=== PATIENT | female | born 1960 | race Caucasian/White ===

== ENCOUNTER 2019-05-16 02:39 | Emergency (ER) | payer MEDICAID ==
[2019-05-16] MEDS ORDERED: Sodium Chloride 0.9% 10 ML Syringe FLUSH PRN (03:00)
[2019-05-16] MEDS ORDERED: HYDROmorphone 2 MG/ML SDV IVPUSH PRN (03:02)
[2019-05-16] MEDS ORDERED: Sodium Chloride 0.9% 1,000 ML IV ONE (03:02)
[2019-05-16] MEDS ORDERED: Ondansetron 4 MG/2 ML SDV IVPUSH ONE (03:02)
--- NOTE | 2019-05-16 03:04 | EDM.PDOC ---
ED HPI GENERAL MEDICAL PROBLEM - General Chief Complaint: Abdominal Pain Stated Complaint: left lower abdominal pain Time Seen by Provider: 05/16/19 02:45 Source of Information: Reports: Patient History Limitations: Reports: No Limitations - History of Present Illness INITIAL COMMENTS - FREE TEXT/NARRATIVE: 58-year-old female who reports an approximate 4 PM last night she developed pain in her left lower quadrant. It was sharp and steady pain that has progressively worsened with time. It now seems to radiate to her right lower back. She has had nausea with vomiting 2. She's had no dysuria or hematuria. She is rating her pain as a 10/10. It does seem to radiate along her left flank and into her left lower back. She has had no fevers or chills. She reports she felt completely normal prior to this occurring for p.m. today. Movement and palpation seems to make it worse. It is better at rest. She was eating and drinking normally prior to this. She has never had pain like this before. Lying down seems to make it worse. Palpation makes it worse. Walking makes it worse There are no other associated signs or symptoms. There are no other modifying factors. 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 (see below) (Nothing) - Related Data Allergies Allergy/AdvReac Type Severity Reaction Status Date / Time No Known Allergies Allergy Verified 05/16/19 02:59 Home Meds: Home Meds Hydrocodone/Acetaminophen [Cameron 5-325 Tablet] 1 - 2 tab PO Q6H PRN #12 tablet 05/16/19 [Rx] Ondansetron [Zofran ODT] 4 mg PO Q6H PRN #8 tab.dis 05/16/19 [Rx] Sulfamethoxazole/Trimethoprim [Bactrim Ds Tablet] 1 each PO BID 7 Days #14 tablet 05/16/19 [Rx] Tamsulosin [Tamsulosin 24 Hr] 0.4 mg PO BEDTIME #7 cap.er 05/16/19 [Rx] Past Medical History - Past Health History Medical/Surgical History: Denies Medical/Surgical History (No chronic medical problems. Surgical history as detailed below.) - Past Surgical History HEENT Surgical History: Reports: Naso-Sinus Surgery Neurological Surgical History: Reports: Lumbar Spine (Surgery years ago.) Social & Family History - Tobacco Use Smoking Status *Q: Current Every Day Smoker - Alcohol Use Alcohol Use History: No Alcohol Use Frequency: Weekly - Living Situation & Occupation Occupation: Employed (Works at the [employer] ED ROS GENERAL - Review of Systems Review Of Systems: See Below Constitutional: Reports: No Symptoms HEENT: Reports: Other (Dry mouth) Respiratory: Reports: No Symptoms Cardiovascular: Reports: No Symptoms Endocrine: Reports: No Symptoms GI/Abdominal: Reports: Abdominal Pain, Nausea, Vomiting (2). Denies: Diarrhea : Reports: Flank Pain. Denies: Dysuria, Hematuria Musculoskeletal: Reports: Back Pain (On her right lower back) Skin: Reports: No Symptoms (No rashes) Neurological: Reports: No Symptoms ED EXAM, GI/ABD - Physical Exam Exam: See Below Exam Limited By: No Limitations General Appearance: Alert, WD/WN, Moderate Distress Eyes: Bilateral: Normal Appearance, EOMI Ears: Normal External Exam, Normal Canal, Hearing Grossly Normal Nose: Normal Inspection, Normal Mucosa, Nasal Swelling Throat/Mouth: Normal Voice, No Airway Compromise, Other (Pharyngeal erythema posteriorly. No stridor. Somewhat hoarse voice.) Head: Atraumatic, Normocephalic Neck: Normal Inspection, Supple, Non-Tender, Full Range of Motion Respiratory/Chest: No Respiratory Distress, Lungs Clear, Normal Breath Sounds, No Accessory Muscle Use, Chest Non-Tender Cardiovascular: Normal Peripheral Pulses, Regular Rate, Rhythm, Tachycardia GI/Abdominal Exam: Normal Bowel Sounds, Soft, Tender (Left lower quadrant. No hernias. No masses.) Back Exam: Normal Inspection, Full Range of Motion. No: Decreased Range of Motion Extremities: Normal Inspection, Normal Range of Motion, Non-Tender, No Pedal Edema, Normal Capillary Refill Neurological: Alert, Oriented, CN II-XII Intact, Normal Cognition, No Motor/ Sensory Deficits Skin Exam: Warm, Dry, Intact, Normal Color, No Rash Course - Vital Signs Last Recorded V/S: Last Vital Signs Temp 36.6 C 05/16/19 03:00 Pulse 74 05/16/19 03:00 Resp 17 05/16/19 03:00 BP 152/83 H 05/16/19 03:00 Pulse Ox 99 05/16/19 03:00 - Orders/Labs/Meds Orders: Active Orders 24 hr Category Date Time Status Abdomen Pelvis wo Cont [CT] Stat Exams 05/16/19 03:00 Taken CULTURE URINE [RM] Stat Lab 05/16/19 04:56 HYDROmorphone [Dilaudid] Med 05/16/19 03:02 Active 0.5 mg IVPUSH Q5M PRN Sodium Chloride 0.9% [Saline Flush] Med 05/16/19 03:00 Active 10 ml FLUSH ASDIRECTED PRN Sulfamethoxazole/Trimethoprim [Septra DS] Med 05/16/19 04:57 Once 1 tab PO ONETIME ONE Peripheral IV Insertion Adult [OM.PC] Routine Oth 05/16/19 03:00 Ordered Medication Orders Hydromorphone HCl (Dilaudid) 0.5 mg IVPUSH Q5M PRN PRN Reason: Abdominal Pain Last Admin: 05/16/19 03:23 Dose: 0.5 mg Sodium Chloride (Saline Flush) 10 ml FLUSH ASDIRECTED PRN PRN Reason: Keep Vein Open Labs: Laboratory Tests 05/16/19 05/16/19 05/16/19 Range/Units 03:20 03:20 03:20 WBC 9.1 (4.5-12.0) X10-3/uL RBC 4.51 (3.23-5.20) x10(6)uL Hgb 15.2 (11.5-15.5) g/dL Hct 43.5 (30.0-51.3) % MCV 96.5 H (80-96) fL MCH 33.7 H (27.7-33.6) pg MCHC 35.0 (32.2-35.4) g/dL RDW 13.6 (11.5-15.5) % Plt Count 194 (125-369) X10(3)uL MPV 9.6 (7.4-10.4) fL Neut % (Auto) 81.3 (46-82) % Lymph % (Auto) 13.7 (13-37) % [place] % (Auto) 2.9 L (4-12) % Eos % (Auto) 1 (1.0-5.0) % Baso % (Auto) 1 (0-2) % Neut # (Auto) 7.4 (1.6-8.3) # Lymph # (Auto) 1.2 (0.6-5.0) # [place] # (Auto) 0.3 (0.0-1.3) # Eos # (Auto) 0.1 (0.0-0.8) # Baso # (Auto) 0.1 (0.0-0.2) # Sodium 138 (135-145) mmol/L Potassium 4.4 (3.5-5.3) mmol/L Chloride 102 (100-110) mmol/L Carbon Dioxide 27 (21-32) mmol/L BUN 11 (7-18) mg/dL Creatinine 0.7 (0.55-1.02) mg/dL Est Cr Clr Drug Dosing TNP Estimated GFR (MDRD) > 60 (>60) BUN/Creatinine Ratio 15.7 (9-20) Glucose 165 H (80-116) mg/dL Calcium 9.1 (8.6-10.2) mg/dL C-Reactive Protein < 0.2 L (0.5-0.9) mg/dL Urine Color (YELLOW) Urine Appearance (CLEAR) Urine pH (5.0-6.5) Ur Specific [place] (1.010-1.025) Urine Protein (NEGATIVE) mg/dL Urine Glucose (UA) (NORMAL) mg/dL Urine Ketones (NEGATIVE) mg/dL Urine Occult Blood (NEGATIVE) Urine Nitrite (NEGATIVE) Urine Bilirubin (NEGATIVE) Urine Urobilinogen (NEGATIVE) mg/dL Ur Leukocyte Esterase (NEGATIVE) Urine RBC (0-5) Urine WBC (0-5) Ur Squamous Epith Cells (NS,R,O) Urine Bacteria (NS) 05/16/19 Range/Units 04:28 WBC (4.5-12.0) X10-3/uL RBC (3.23-5.20) x10(6)uL Hgb (11.5-15.5) g/dL Hct (30.0-51.3) % MCV (80-96) fL MCH (27.7-33.6) pg MCHC (32.2-35.4) g/dL RDW (11.5-15.5) % Plt Count (125-369) X10(3)uL MPV (7.4-10.4) fL Neut % (Auto) (46-82) % Lymph % (Auto) (13-37) % [place] % (Auto) (4-12) % Eos % (Auto) (1.0-5.0) % Baso % (Auto) (0-2) % Neut # (Auto) (1.6-8.3) # Lymph # (Auto) (0.6-5.0) # [place] # (Auto) (0.0-1.3) # Eos # (Auto) (0.0-0.8) # Baso # (Auto) (0.0-0.2) # Sodium (135-145) mmol/L Potassium (3.5-5.3) mmol/L Chloride (100-110) mmol/L Carbon Dioxide (21-32) mmol/L BUN (7-18) mg/dL Creatinine (0.55-1.02) mg/dL Est Cr Clr Drug Dosing Estimated GFR (MDRD) (>60) BUN/Creatinine Ratio (9-20) Glucose (80-116) mg/dL Calcium (8.6-10.2) mg/dL C-Reactive Protein (0.5-0.9) mg/dL Urine Color Yellow (YELLOW) Urine Appearance Slightly cloudy (CLEAR) Urine pH 6.5 (5.0-6.5) Ur Specific [place] 1.020 (1.010-1.025) Urine Protein Negative (NEGATIVE) mg/dL Urine Glucose (UA) Normal (NORMAL) mg/dL Urine Ketones Negative (NEGATIVE) mg/dL Urine Occult Blood Negative (NEGATIVE) Urine Nitrite Negative (NEGATIVE) Urine Bilirubin Negative (NEGATIVE) Urine Urobilinogen Normal (NEGATIVE) mg/dL Ur Leukocyte Esterase Negative (NEGATIVE) Urine RBC 0-5 (0-5) Urine WBC 0-5 (0-5) Ur Squamous Epith Cells Occasional (NS,R,O) Urine Bacteria Few H (NS) Meds: Medications Generic Name Dose Route Start Last Admin Trade Name Freq PRN Reason Stop Dose Admin Hydromorphone HCl 0.5 mg 05/16/19 03:02 05/16/19 03:23 Dilaudid IVPUSH 0.5 mg Q5M PRN Administration Abdominal Pain Sodium Chloride 10 ml 05/16/19 03:00 Saline Flush FLUSH ASDIRECTED PRN Keep Vein Open Discontinued Medications Generic Name Dose Route Start Last Admin Trade Name Nolvia PRN Reason Stop Dose Admin Sodium Chloride 1,000 mls @ 999 mls/hr 05/16/19 03:02 05/16/19 03:26 Normal Saline IV 05/16/19 04:02 999 mls/hr .BOLUS ONE Administration Ketorolac Tromethamine 30 mg 05/16/19 04:04 05/16/19 04:16 Toradol IVPUSH 05/16/19 04:05 30 mg ONETIME ONE Administration Ondansetron HCl 4 mg 05/16/19 03:02 05/16/19 03:23 Zofran IVPUSH 05/16/19 03:03 4 mg ONETIME ONE Administration Tamsulosin HCl 0.4 mg 05/16/19 04:44 05/16/19 04:55 Flomax PO 05/16/19 04:45 0.4 mg ONETIME ONE Administration - Radiology Interpretation Free Text/Narrative:: CT scan of abdomen and pelvis showed 1 mm stone in distal ureter on the left with no hydronephrosis. There was moderate to severe spinal canal stenosis in the lower lumbar area. This was per the radiologist. - Re-Assessments/Exams Free Text/Narrative Re-Assessment/Exam: 05/16/19 04:42: The patient has provided us with a urine. It did look relatively clear. I am awaiting the results from lab. Her blood tests were reassuringly normal. The CT scan of her abdomen and pelvis showed a 1 mm distal ureteral stone that should pass on its own. The patient reports her pain is a 7/ 10 and is decreasing. She has no more nausea. If the urine is negative or infection, I will be discharging the patient with prescriptions for hydrocodone/ 325, Zofran 4 mg ODT and Flomax 0.4 mg. I will give the patient Flomax 0.4 mg po now. 05/16/19 04:57: The urine did have 0-5 white cells per high powered field with 1 + bacteria and it did appear to be a good clean-catch specimen. I will send this urine for culture and I will place the patient on Bactrim DS 1 by mouth twice a day 7 days. Departure - Departure Time of Disposition: 05:00 Disposition: Home, Self-Care 01 Condition: Good (Improved) Clinical Impression: Renal colic on left side, Left ureteral calculus - Discharge Information Prescriptions: Hydrocodone/Acetaminophen [Cameron 5-325 Tablet] 1 - 2 tab PO Q6H PRN #12 tablet PRN Reason: Moderate to severe pain Ondansetron [Zofran ODT] 4 mg PO Q6H PRN #8 tab.dis PRN Reason: Nausea/Vomiting Sulfamethoxazole/Trimethoprim [Bactrim Ds Tablet] 1 each PO BID 7 Days #14 tablet Tamsulosin [Tamsulosin 24 Hr] 0.4 mg PO BEDTIME #7 cap.er Instructions: Renal Colic, [id number], Kidney Stones, [id number] Referrals: Lizzy Dubose NP [Nurse Practitioner] - Forms: ED Department Discharge, ED Return to Work/School Form Additional Instructions: You have a small kidney stone (1 mm) in your lower ureter on the left side. This should pass on its own. This is the cause of your abdominal pain and back pain. You should drink plenty of fluids. You should strain your urine. Medication as prescribed (hydrocodone 5/325, Zofran 4 mg ODT, Flomax 0.4 mg, Bactrim DS). Your urine did have a few infection cells in it and placed you on antibiotics to treat for a possible urinary infection. I have referred you to one of the nurse practitioners associated with [facility]. They will call you for follow-up. Back to the emergency department for fever, inability to urinate, unrelenting vomiting or any other concerning sign or symptom. - My Orders Last 24 Hours: My Active Orders 05/16/19 03:00 Abdomen Pelvis wo Cont [CT] Stat Sodium Chloride 0.9% [Saline Flush] 10 ml FLUSH ASDIRECTED PRN Peripheral IV Insertion Adult [OM.PC] Routine 05/16/19 03:02 HYDROmorphone [Dilaudid] 0.5 mg IVPUSH Q5M PRN 05/16/19 04:56 CULTURE URINE [RM] Stat 05/16/19 04:57 Sulfamethoxazole/Trimethoprim [Septra DS] 1 tab PO ONETIME ONE - Assessment/Plan Last 24 Hours: My Active Orders 05/16/19 03:00 Abdomen Pelvis wo Cont [CT] Stat Sodium Chloride 0.9% [Saline Flush] 10 ml FLUSH ASDIRECTED PRN Peripheral IV Insertion Adult [OM.PC] Routine 05/16/19 03:02 HYDROmorphone [Dilaudid] 0.5 mg IVPUSH Q5M PRN 05/16/19 04:56 CULTURE URINE [RM] Stat 05/16/19 04:57 Sulfamethoxazole/Trimethoprim [Septra DS] 1 tab PO ONETIME ONE
[2019-05-16] MEDS ORDERED: Ketorolac 30 MG/ML SDV IVPUSH ONE (04:04)
[2019-05-16] MEDS ORDERED: Tamsulosin 0.4 MG Cap.ER PO ONE (04:44)
[2019-05-16] MEDS ORDERED: Sulfamethoxazole/Trimethoprim 800-160 MG Tab PO ONE (04:57)
== END 2019-05-16 05:15 | disposition home or self-care (01) ==
LOC: FB.ED 02:39
DX: N23 Unspecified renal colic (principal); N20.1 Calculus of ureter; F17.200 Nicotine dependence, unspecified, uncomplicated
CPT/HCPCS: 36415; 74176; 80048; 81001; 85025; 86140; 87086; 96361; 96374; 96375; 99284; A9270; J1170; J1885; J2405; J7030